=== PATIENT | female | born 1970 ===

== ENCOUNTER 2018-05-22 08:04 | Day surgery (SDC) | payer OTHER ==
[2018-05-07 16:07] VITALS: BMI 43.0
[2018-05-22] MEDS ORDERED: Lidocaine 2% Inj (20ml) ONE (08:46)
[2018-05-22] MEDS ORDERED: Iodixanol 320 MG/ML 200 ML BOTTLE IV ONE (08:47)
[2018-05-22] MEDS ORDERED: Iohexol 350mgl/ml 50 ML ONE (08:47)
[2018-05-22] MEDS ORDERED: Midazolam 2 MG/2 ML VIAL ONE (09:09)
[2018-05-22] MEDS ORDERED: Sodium Chloride 0.9% 1,000 ML IV SCH (10:15)
[2018-05-22] MEDS: Insulin Reg-LOW-Coverage SC SCH ×2 (12:00→18:07)
[2018-05-22 12:54] VITALS: RESP 20
--- NOTE | 2018-05-22 16:47 | CARD ---
APPROVED REPORT Date of service: 05/22/2018 EKG Measurement Heart [id number] <Conclusion> Normal sinus rhythm Normal ECG
[2018-05-22 17:57] VITALS: BP 163/71; PULSE 68; TEMP 98.8
--- NOTE | 2018-05-23 18:36 | CARDCATH ---
PROCEDURE DATE: 05/22/2018 PROCEDURE: Percutaneous right coronary artery intervention and drug-eluting stent placement. CLINICAL INDICATIONS: 1. Coronary artery disease. 2. Abnormal stress test. 3. Peripheral artery disease. 4. Hypertension. 5. Hyperlipidemia. 6. Diabetes. PERFORMING PHYSICIAN: Dr. Michael Shore. PROCEDURE: After informed consent, the patient was prepped and draped in the usual sterile fashion. A 2% lidocaine was given in the right groin for local anesthesia. Using micropuncture technique, 6-[place] sheath was introduced into right common femoral artery. The patient was preloaded with aspirin, Plavix and IV heparin. ACT was maintained above 250 throughout the procedure. A 6-Gib[place] JR4 guide catheter engaged into right coronary artery. Contrast injected and right coronary angiogram was done. Distal right coronary artery has 90% concentric stenosis, the ostial 60% stenosis, proximal and mid RCA is patent. Right coronary arteries threaded with Runthrough coronary wires. The distal lesion pre-dilated using 2 x 15 compliant balloon and then stented with 2.5 x 26 Resolute Vamshi drug-eluting stent. Excellent final angiographic results with brisk CYNTHIA 3 flow noted. Radiological supervision and radiological interpretation of the thermal imaging was done. Perclose suture deployed with excellent hemostasis. CONCLUSION: Successful right coronary artery intervention with drug-eluting stent, LAD intervention as an outpatient after 4-6 weeks. Continue dual antiplatelet therapy for one year. Beta-blockers, LULA inhibitor and statins for life. Michael Shore MD
== END 2018-05-22 21:34 | disposition short-term general hospital (02) ==
LOC: CATH 08:04 → 2RSO 10:37 → CATH 21:34
PROVIDERS: ATTEND Internal Medicine Cardiovascular Disease
DX: I25.10 Atherosclerotic heart disease of native coronary artery without angina pectoris (principal); E11.51 Type 2 diabetes mellitus with diabetic peripheral angiopathy without gangrene; E78.5 Hyperlipidemia, unspecified; I10 Essential (primary) hypertension; R94.39 Abnormal result of other cardiovascular function study; Z79.4 Long term (current) use of insulin